=== PATIENT | male | born 1975 | race Caucasian/White ===

== ENCOUNTER 2019-06-16 12:46 | Observation (INO) | payer BC ==
--- NOTE | 2019-06-16 13:25 | RAD REPORT ---
EXAM DESCRIPTION: RAD - Chest Single View - 06/16/2019 1:17 pm CLINICAL HISTORY: ABDOMINAL DISTENTION Chest pain. COMPARISON: No comparisons FINDINGS: Portable technique limits examination quality. The lungs are grossly clear. The heart is normal in size. No displaced fractures. IMPRESSION: No acute intrathoracic process suspected.
[2019-06-16] MEDS ORDERED: NA CHLORIDE 0.9% 1,000 ML ONE (13:26)
[2019-06-16 13:52] LABS: Absolute Lymphocytes (CBC) 1.2 K/uL (0.7-4.9); Basophils % 0.5 % (0-1.3); Hematocrit 52.2 % (39.6-49.0); Lymphocytes % 8.2 % (15.3-44.8); MPV 8.4 fL (7.6-11.3); RBC Red Blood Cell Count 5.66 M/uL (4.33-5.43)
[2019-06-16 13:53] LABS: Protime INR 1.16
[2019-06-16] MEDS ORDERED: METRONIDAZOLE 500mg IVPB 500 MG/100 ML BAG IV ONE (13:53)
[2019-06-16] MEDS ORDERED: CIPROFLOXACIN 400mg IV 400 MG/200 ML BAG IV ONE (13:53)
[2019-06-16 14:09] LABS: ALT/SGPT 26 U/L (12-78); AST/SGOT 33 U/L (15-37); Albumin 4.1 g/dL (3.4-5.0); Alkaline Phosphatase 78 U/L (45-117); BUN Blood Urea Nitrogen 20 mg/dL (7-18); Bicarbonate 24 mmol/L (21-32); Bilirubin Direct 0.2 mg/dL (0-0.2); Bilirubin Total 0.5 mg/dL (0.2-1.0); Glucose Level 138 mg/dL (74-106); Lipase 64 U/L (73-393); Magnesium 2.1 mg/dL (1.8-2.4); NT PRO-BNP 97 pg/mL (<125); Potassium 3.6 mmol/L (3.5-5.1); Protein, Total 8.4 g/dL (6.4-8.2); Sodium Level 134 mmol/L (136-145); Troponin (Emerg Dept Use Only) < 0.02 ng/mL (0.0-0.045)
--- NOTE | 2019-06-16 14:59 | RAD REPORT ---
EXAM DESCRIPTION: CT - Abdomen Pelvis Wo Contrast - 06/16/2019 2:39 pm CLINICAL HISTORY: Abdominal pain. ABD PAIN COMPARISON: No comparisons TECHNIQUE: CT imaging of the abdomen and pelvis was performed without contrast. Solid organ, bowel a nd vascular assessment is limited due to lack of IV and oral contrast. All CT scans are performed using dose optimization technique as appropriate and may include automated exposure control or mA/KV adjustment according to patient size. FINDINGS: The lower lung jonas are clear. The liver demonstrates diffuse fatty infiltration. The spleen, pancreas, adrenal glands and kidneys a re within normal limits for a limited non-contrast examination. No bowel obstruction, free air, free fluid or abscess. Moderate thickening of the majority of the col on is seen, greatest in the transverse colon compatible with colitis. No pneumatosis coli is seen. Th e appendix is normal. The osseous structures are within normal limits.Small fat containing umbilical hernia. Small fat cont aining right inguinal hernia. IMPRESSION: Moderate colitis is present, most severe involving the transverse colon. A limited non-contrast examination was performed as detailed.
[2019-06-16] MEDS ORDERED: CEFTRIAXONE/SWI 2gm 2 GM/20 ML SYR IVP ONE (15:00)
--- NOTE | 2019-06-16 15:32 | EDPHYS ---
Physician Documentation [facility] Name: Nuris Everett Age: 44 yrs Sex: Male : 1975 Arrival Date: 06/16/2019 Time: 12:50 Bed 15 Private MD: ED Physician Aries Mcgraw HPI: 06/16 13:43 This 44 yrs old Male presents to ER via Ambulatory with complaints of Fever, [place] Abdominal Pain. 13:43 The patient reports fever, that was measured at 100 degrees Fahrenheit. Onset: The [place] symptoms/episode began/occurred 2 day(s) ago. Modifying factors: there are no obvious modifying factors. Associated signs and symptoms: Pertinent positives: abdominal pain. Severity of symptoms: At their worst the symptoms were mild in the emergency department the symptoms are unchanged. The patient has not experienced similar symptoms in the past. Historical: - Allergies: 12:59 PENICILLINS; ss - Home Meds: 12:59 None [Active]; ss - PMHx: 12:59 None; ss - PSHx: 12:59 None; ss - Immunization history:: Adult Immunizations unknown. - Social history:: Smoking status: Patient uses tobacco products, smokes one pack cigarettes per day. - Ebola Screening: : Patient denies exposure to infectious person Patient denies travel to an Ebola-affected area in the 21 days before illness onset. - Family history:: not pertinent. ROS: 13:43 Constitutional: Negative for fever, chills, and weight loss, Eyes: Negative for injury, [place] pain, redness, and discharge, ENT: Negative for injury, pain, and discharge, Neck: Negative for injury, pain, and swelling, Cardiovascular: Negative for chest pain, palpitations, and edema, Respiratory: Negative for shortness of breath, cough, wheezing, and pleuritic chest pain, Back: Negative for injury and pain, : Negative for injury, bleeding, discharge, and swelling, MS/Extremity: Negative for injury and deformity, Skin: Negative for injury, rash, and discoloration, Neuro: Negative for headache, weakness, numbness, tingling, and seizure, Psych: Negative for depression, anxiety, suicide ideation, homicidal ideation, and hallucinations, Allergy/Immunology: Negative for hives, rash, and allergies, Endocrine: Negative for neck swelling, polydipsia, polyuria, polyphagia, and marked weight changes, Hematologic/Lymphatic: Negative for swollen nodes, abnormal bleeding, and unusual bruising. 13:43 Abdomen/GI: Positive for abdominal pain, nausea and vomiting, diarrhea, of the right lower quadrant and left lower quadrant. Exam: 13:43 Constitutional: This is a well developed, well nourished patient who is awake, alert, [place] and in no acute distress. Head/Face: Normocephalic, atraumatic. Eyes: Pupils equal round and reactive to light, extra-ocular motions intact. Lids and lashes normal. Conjunctiva and sclera are non-icteric and not injected. Cornea within normal limits. Periorbital areas with no swelling, redness, or edema. ENT: Nares patent. No nasal discharge, no septal abnormalities noted. Tympanic membranes are normal and external auditory canals are clear. Oropharynx with no redness, swelling, or masses, exudates, or evidence of obstruction, uvula midline. Mucous membranes moist. Neck: Trachea midline, no thyromegaly or masses palpated, and no cervical lymphadenopathy. Supple, full range of motion without nuchal rigidity, or vertebral point tenderness. No Meningismus. Chest/axilla: Normal chest wall appearance and motion. Nontender with no deformity. No lesions are appreciated. Cardiovascular: Regular rate and rhythm with a normal S1 and S2. No gallops, murmurs, or rubs. Normal PMI, no JVD. No pulse deficits. Respiratory: Lungs have equal breath sounds bilaterally, clear to auscultation and percussion. No rales, rhonchi or wheezes noted. No increased work of breathing, no retractions or nasal flaring. Back: No spinal tenderness. No costovertebral tenderness. Full range of motion. Male : Normal genitalia with no discharge or lesions. Skin: Warm, dry with normal turgor. Normal color with no rashes, no lesions, and no evidence of cellulitis. MS/ Extremity: Pulses equal, no cyanosis. Neurovascular intact. Full, normal range of motion. Neuro: Awake and alert, GCS 15, oriented to person, place, time, and situation. Cranial nerves II-XII grossly intact. Motor strength 5/5 in all extremities. Sensory grossly intact. Cerebellar exam normal. Normal gait. Psych: Awake, alert, with orientation to person, place and time. Behavior, mood, and affect are within normal limits. 13:43 Abdomen/GI: Inspection: distension, Bowel sounds: normal, Palpation: mild abdominal tenderness, moderate abdominal tenderness, in the right lower quadrant and left lower quadrant, Liver: no appreciated palpable abnormalities, Hernia: not appreciated. Vital Signs: 12:56 BP 140 / 85; Pulse 111; Resp 18; Temp 97.2(TE); Pulse Ox 97% on R/A; Weight 140.61 kg; ss Height 6 ft. 4 in. (193.04 cm); Pain 4/10; 13:56 BP 118 / 89; Pulse 102; Resp 18; Temp 99.1(O); Pulse Ox 95% on R/A; mh5 15:43 BP 125 / 87; Pulse 100; Resp 16; Pulse Ox 93% ; bp 16:13 BP 133 / 94; Pulse 93; Resp 17; Temp 100.7(O); Pulse Ox 95% on R/A; mh5 16:54 BP 107 / 70; Pulse 96; Resp 16; Pulse Ox 97% ; bp 12:56 Body Mass Index 37.73 (140.61 kg, 193.04 cm) ss MDM: 12:51 Patient medically screened. [facility] 13:47 Data reviewed: vital signs, nurses notes, lab test result(s), EKG, radiologic studies, [facility] CT scan, plain films. 06/16 12:57 Order name: Basic Metabolic Panel; Complete Time: 14:24 [facility] 06/16 12:57 Order name: CBC with Diff; Complete Time: 14:24 [facility] 06/16 12:57 Order name: LFT's; Complete Time: 14:24 [facility] 06/16 12:57 Order name: Magnesium; Complete Time: 14:24 [facility] 06/16 12:57 Order name: NT PRO-BNP; Complete Time: 14:24 [facility] 06/16 12:57 Order name: PT-INR; Complete Time: 14:24 [facility] 06/16 12:57 Order name: Troponin (emerg Dept Use Only); Complete Time: 14:24 [facility] 06/16 12:57 Order name: XRAY Chest (1 view); Complete Time: 14:24 [facility] 06/16 12:57 Order name: Lipase; Complete Time: 14:24 [facility] 06/16 12:57 Order name: Urine Culture [facility] 06/16 15:25 Order name: Stool Culture bd 06/16 15:25 Order name: CDIFF bd 06/16 15:25 Order name: Fecal Leukocyte Stain bd 06/16 12:57 Order name: EKG; Complete Time: 12:58 [facility] 06/16 12:57 Order name: Cardiac monitoring; Complete Time: 13:48 [facility] 06/16 12:57 Order name: EKG - Nurse/Tech; Complete Time: 13:09 [facility] 06/16 12:57 Order name: IV Saline Lock; Complete Time: 13:49 [facility] 06/16 12:57 Order name: Labs collected and sent; Complete Time: 13:49 [facility] 06/16 12:57 Order name: O2 Per Protocol; Complete Time: 13:49 [facility] 06/16 12:57 Order name: O2 Sat Monitoring; Complete Time: 13:48 [facility] 06/16 14:28 Order name: CT Abd/Pelvis - Without Contrast; Complete Time: 15:22 [place] Administered Medications: 13:30 Drug: NS 0.9% 1000 ml Route: IV; Rate: 1 bolus; Site: left antecubital; bp 18:17 Follow up: IV Status: Completed infusion bp 13:50 Drug: Flagyl 500 mg Volume: 100 ml; Route: IVPB; Rate: 200 ml/hr; Infused Over: 30 bp mins; Site: left antecubital; 18:16 Follow up: IV Status: Completed infusion; IV Intake: 100ml bp 14:30 Drug: Cipro 400 mg Volume: 200 ml; Route: IVPB; Infused Over: 60 mins; Site: left bp antecubital; 18:17 Follow up: IV Status: Completed infusion bp 14:30 Drug: Rocephin - (cefTRIAXone) 2 grams Route: IVPB; Infused Over: 30 mins; Site: left bp antecubital; 18:16 Follow up: IV Status: Completed infusion; IV Intake: 50ml bp 15:26 Drug: NS 0.9% 1000 ml Route: IV; Rate: 1 bolus; Site: left antecubital; bp 18:15 Follow up: IV Status: Completed infusion; IV Intake: 1000ml bp Disposition: 06/16/19 15:31 Hospitalization ordered by Greg Schaffer for Inpatient Admission. Preliminary diagnosis are Abdominal tenderness, Left sided colitis - pancolitis, Elevated white blood cell count, Fever, unspecified, Unspecified kidney failure. - Bed requested for Telemetry/MedSurg (Inpatient). - Status is Inpatient Admission. bp - Condition is Stable. - Problem is new. - Symptoms have improved. UTI on Admission? No Signatures: Dispatcher [employer] [facility] Maria ElenaZakia hurley Aries Moore MD MD cha Smirch, Shelby, DAVI RN Greg Tapia, RN RN bp Corrections: (The following items were deleted from the chart) 13:09 12:58 Urine Test ordered. [facility] 14:31 13:43 Abdomen Pelvis W Con+CT.RAD.BRZ ordered. [facility] EDAK 15:32 15:31 Hospitalization Ordered by Greg Schaffer for Inpatient Admission. Preliminary [facility] diagnosis is Abdominal tenderness; Left sided colitis - pancolitis; Elevated white blood cell count; Fever, unspecified. Bed requested for Telemetry/MedSurg (Inpatient). Status is Inpatient Admission. Condition is Stable. Problem is new. Symptoms have improved. UTI on Admission? No. [facility] 18:03 15:32 06/16/2019 15:31 Hospitalization Ordered by Greg Schaffer for Inpatient bd Admission. Preliminary diagnosis is Abdominal tenderness; Left sided colitis - pancolitis; Elevated white blood cell count; Fever, unspecified; Unspecified kidney failure. Bed requested for Telemetry/MedSurg (Inpatient). Status is Inpatient Admission. Condition is Stable. Problem is new. Symptoms have improved. UTI on Admission? No. [place] 18:21 18:03 06/16/2019 15:31 Hospitalization Ordered by Greg Schaffer for Inpatient bp Admission. Preliminary diagnosis is Abdominal tenderness; Left sided colitis - pancolitis; Elevated white blood cell count; Fever, unspecified; Unspecified kidney failure. Bed requested for Telemetry/MedSurg (Inpatient). Status is Inpatient Admission. Condition is Stable. Problem is new. Symptoms have improved. UTI on Admission? No. bd
--- NOTE | 2019-06-16 15:32 | ER ---
Nurse's Notes [facility] Name: Nuris Everett Age: 44 yrs Sex: Male : 1975 Arrival Date: 06/16/2019 Time: 12:50 Bed 15 Private MD: Diagnosis: Abdominal tenderness;Left sided colitis-pancolitis;Elevated white blood cell count;Fever, unspecified;Unspecified kidney failure Presentation: 06/16 12:57 Presenting complaint: Patient states: cough, headache, lightheadedness, diarrhea x 2 ss days. Seen by PCP yesterday and given Tamiflu. Pt is concerned because he is still having episodes of diarrhea every 30 minutes and was directed by PCP to come back lab work obtained as well as chest XRAY. Transition of care: patient was not received from another setting of care. Onset of symptoms was June 14, 2019. Risk Assessment: Do you want to hurt yourself or someone else? Patient reports no desire to harm self or others. Initial Sepsis Screen: Does the patient meet any 2 criteria? HR > 90 bpm. Does the patient have a suspected source of infection? No. Patient's initial sepsis screen is negative. Care prior to arrival: None. 12:57 Method Of Arrival: Ambulatory ss 12:57 Acuity: MANFRED 3 ss Triage Assessment: 13:00 General: Appears in no apparent distress. uncomfortable, obese, Behavior is bp cooperative, appropriate for age, anxious. Pain: Complains of pain in left lower quadrant and right lower quadrant. EENT: No deficits noted. Neuro: No deficits noted. Cardiovascular: No deficits noted. Respiratory: No deficits noted. GI: Reports lower abdominal pain. : No signs and/or symptoms were reported regarding the genitourinary system. Derm: No deficits noted. Musculoskeletal: No deficits noted. Historical: - Allergies: 12:59 PENICILLINS; ss - Home Meds: 12:59 None [Active]; ss - PMHx: 12:59 None; ss - PSHx: 12:59 None; ss - Immunization history:: Adult Immunizations unknown. - Social history:: Smoking status: Patient uses tobacco products, smokes one pack cigarettes per day. - Ebola Screening: : Patient denies exposure to infectious person Patient denies travel to an Ebola-affected area in the 21 days before illness onset. - Family history:: not pertinent. Screenin:51 Abuse screen: Denies threats or abuse. Denies injuries from another. Nutritional bp screening: No deficits noted. Tuberculosis screening: No symptoms or risk factors identified. Fall Risk None identified. Assessment: 13:00 General: SEE TRIAGE NOTE. bp 14:30 Reassessment: PT RETURNED FROM CT. bp 14:30 GI: Bowel sounds present X 4 quads. Abd is soft X 4 quads. bp 15:44 Reassessment: ADMIT IN PROCESS. bp 16:53 Reassessment: ADMIT MD AT B/S. bp 16:54 GI: Abdomen is non-distended, Reports diarrhea. bp 18:11 Reassessment: ADMIT COMPLETE. PT MIRZA WITH PCT. bp Vital Signs: 12:56 BP 140 / 85; Pulse 111; Resp 18; Temp 97.2(TE); Pulse Ox 97% on R/A; Weight 140.61 kg; ss Height 6 ft. 4 in. (193.04 cm); Pain 4/10; 13:56 BP 118 / 89; Pulse 102; Resp 18; Temp 99.1(O); Pulse Ox 95% on R/A; mh5 15:43 BP 125 / 87; Pulse 100; Resp 16; Pulse Ox 93% ; bp 16:13 BP 133 / 94; Pulse 93; Resp 17; Temp 100.7(O); Pulse Ox 95% on R/A; mh5 16:54 BP 107 / 70; Pulse 96; Resp 16; Pulse Ox 97% ; bp 12:56 Body Mass Index 37.73 (140.61 kg, 193.04 cm) ED Course: 12:50 Patient arrived in ED. mr 12:51 Aries Mcgraw MD is Attending Physician. [facility] 12:52 Greg Tapia, DAVI is Primary Nurse. bp 12:56 Arm band placed on right wrist. ss 12:59 Triage completed. ss 13:19 XRAY Chest (1 view) In Process Unspecified. EDMS 13:30 Inserted saline lock: 20 gauge in left antecubital area, using aseptic technique. Blood bp collected. 13:51 Patient has correct armband on for positive identification. Bed in low position. Call bp light in reach. Side rails up X2. 14:40 CT Abd/Pelvis - Without Contrast In Process Unspecified. EDMS 15:29 Greg Schaffer is Hospitalizing Provider. [place] 18:12 No provider procedures requiring assistance completed. Patient admitted, IV remains in bp place. Administered Medications: 13:30 Drug: NS 0.9% 1000 ml Route: IV; Rate: 1 bolus; Site: left antecubital; bp 18:17 Follow up: IV Status: Completed infusion bp 13:50 Drug: Flagyl 500 mg Volume: 100 ml; Route: IVPB; Rate: 200 ml/hr; Infused Over: 30 bp mins; Site: left antecubital; 18:16 Follow up: IV Status: Completed infusion; IV Intake: 100ml bp 14:30 Drug: Cipro 400 mg Volume: 200 ml; Route: IVPB; Infused Over: 60 mins; Site: left bp antecubital; 18:17 Follow up: IV Status: Completed infusion bp 14:30 Drug: Rocephin - (cefTRIAXone) 2 grams Route: IVPB; Infused Over: 30 mins; Site: left bp antecubital; 18:16 Follow up: IV Status: Completed infusion; IV Intake: 50ml bp 15:26 Drug: NS 0.9% 1000 ml Route: IV; Rate: 1 bolus; Site: left antecubital; bp 18:15 Follow up: IV Status: Completed infusion; IV Intake: 1000ml bp Intake: 18:15 IV: 1000ml; Total: 1000ml. bp 18:16 IV: 50ml; Total: 1050ml. bp 18:16 IV: 100ml; Total: 1150ml. bp Outcome: 15:31 Decision to Hospitalize by Provider. [place] 18:12 Admitted to Med/surg accompanied by tech, via wheelchair, room 217, with chart, Report bp called to VIRA TOMLINSON 18:12 Condition: stable bp 18:12 Instructed on the need for admit. 18:21 Patient left the ED. bp Signatures: Dispatcher [employer] EDAries Mathew MD MD cha Rivera, Antonietta mr Allegra Tejada, RN RN Liss Miranda [facility] Greg Tapia, DAVI RN bp
--- NOTE | 2019-06-16 17:11 | EKG ---
Test Date: 2019-06-16 Test Time: 13:04:30 Director Service: EVAN/S MEASUREMENT RESULTS: Intervals: Rate: 97 CA: 124 QRSD: 88 QT: 352 QTc: 447 [place]: P: 41 CA: 124 QRS: -24 T: -13 INTERPRETIVE STATEMENTS: Normal sinus rhythm Left atrial abnormality Non specific T abnormality Abnormal ECG No previous ECG available for comparison Electronically Signed On 06-16-19 17:10:26 CDT by Joaquín Burdick
--- NOTE | 2019-06-16 17:40 | P.HP ---
Certification for Inpatient Patient admitted to: Inpatient With expected LOS: >2 Midnights Practitioner: I am a practitioner with admitting privileges, knowledge of patient current condition, hospital course, and medical plan of care. Services: Services provided to patient in accordance with Admission requirements found in Title 42 Section 412.3 of the Code of Federal Regulations Patient History Date of Service: 06/16/19 Reason for admission: Diarrhea History of Present Illness: 44-year-old gentleman with known past medical history presented to the emergency department with a complaint of diarrhea of 2 days duration, associated nausea and fever. He reports several episodes of diarrhea, about 12 today, along with abdominal pain, maximum intensity 8/10. Diarrhea described as watery and profuse, no mucous or blood seen. He denies vomiting. In the ED, patient noted [place] afebrile, has leukocytosis. His creatinine is 1.64. No other lab values to compare. CT abdomen and pelvis demonstrated colitis most severe in the transverse colon. Patient is admitted for further management of infectious colitis. Home medications list reviewed: Yes (None) - Past Medical/Surgical History -: None -: None - Family History Family History: Reviewed- Non-Contributory - Social History Smoking Status: Current every day smoker Alcohol use: Yes CD- Drugs: No Place of Residence: Home Review of Systems Other: General: No fever, no malaise, no unintentional weight loss. Eyes: No eye discharge, Respiratory: No cough, no shortness of breath. CVS: No chest pain, no palpitation, no lightheadedness. GI: No abdominal pain, no constipation. Genitourinary: No dysuria, no urinary frequency, no incontinence, no hematuria. Musculoskeletal: No joint pains, or joint swelling, no gait instability. Neurology: No headache, no asymmetric, weakness, no problem with swallowing. Except as documented, all other systems reviewed and negative. Physical Examination - Physical Exam General: Alert, In no apparent distress, Oriented x3 HEENT: Atraumatic, Normocephalic, PERRLA, Mucous membr. moist/pink Neck: Supple, JVD not distended, No Thyromegaly Respiratory: Clear to auscultation bilaterally, Normal air movement Cardiovascular: No edema, Regular rate/rhythm, Normal S1 S2, No murmurs Capillary refill: <2 Seconds Gastrointestinal: Normal bowel sounds, Soft and benign, Tenderness (Mild diffuse tenderness.) Musculoskeletal: No clubbing, No swelling Integumentary: No rashes, No breakdown Neurological: Normal gait, Normal strength at 5/5 x4 extr, Cranial nerves 3-12 intact, Normal affect Lymphatics: No axilla or inguinal lymphadenopathy - Studies Laboratory Data (last 24 hrs) 06/16/19 13:30: PT 13.6 H, INR 1.16 06/16/19 13:30: WBC 15.1 H, Hgb 18.4 H, Hct 52.2 H, Plt Count 266 06/16/19 13:30: Sodium 134 L, Potassium 3.6, BUN 20 H, Creatinine 1.64 H, Glucose 138 H, Magnesium 2.1, Total Bilirubin 0.5, AST 33, ALT 26, Alkaline Phosphatase 78, Lipase 64 L Imagings Data: CT abdomen/pelvis: Moderate colitis is present, most severe involving the transverse colon. Assessment and Plan - Problems (Diagnosis) (1) Infectious colitis Current Visit: Yes Status: Acute (2) Leukocytosis Current Visit: Yes Status: Acute (3) Acute renal failure Current Visit: Yes Status: Acute (4) Tobacco use Current Visit: Yes Status: Acute - Plan Admit to [facility] IV hydration with normal saline IV Flagyl and ciprofloxacin Stool studies-WBC, C.diff Monitor renal function for improvement. Monitor CBC. Nicotine patch. - Advance Directives Does patient have a Living Will: No Does patient have a Durable POA for Healthcare: No
[2019-06-16] MEDS ORDERED: ONDANSETRON 4 MG/2 ML VIAL IV PRN (18:37)
[2019-06-16] MEDS ORDERED: ACETAMINOPHEN 500 MG TAB PO PRN (18:37)
[2019-06-16] MEDS ORDERED: ZOLPIDEM TARTRATE 5 MG TABLET PO PRN (18:37)
[2019-06-16] MEDS ORDERED: MORPHINE 2 MG/ML SYR IV PRN (18:37)
[2019-06-16] MEDS: NA CHLORIDE 0.9% 1,000 ML IV SCH (20:36)
[2019-06-16] MEDS: ENOXAPARIN 40 MG/0.4 ML SQ SCH (20:37)
[2019-06-16] MEDS: CIPROFLOXACIN 400mg IV 400 MG/200 ML BAG IV SCH (20:37)
[2019-06-16] MEDS ORDERED: INFLUENZA VACCINE (for 3y+) 0.5 ML DOSE IMVAC ONE (21:00)
[2019-06-16 21:28] VITALS: O2SAT 96
[2019-06-17] MEDS: METRONIDAZOLE 500mg IVPB 500 MG/100 ML BAG IV SCH ×3 (00:52→17:22)
[2019-06-17] MEDS: NA CHLORIDE 0.9% 1,000 ML IV SCH ×3 (04:37→14:37)
[2019-06-17] MEDS: LOPERAMIDE HCL 2 MG CAPSULE PO PRN ×2 (06:00→21:18)
[2019-06-17 06:03] LABS: Magnesium 2.2 mg/dL (1.8-2.4); Phosphorus 2.9 mg/dL (2.5-4.9); Potassium 3.7 mmol/L (3.5-5.1)
[2019-06-17 07:35] LABS: Absolute Lymphocytes (CBC) 2.2 K/uL (0.7-4.9); Basophils % 0.4 % (0-1.3); Hematocrit 49.7 % (39.6-49.0); Lymphocytes % 14.8 % (15.3-44.8); MPV 8.8 fL (7.6-11.3); RBC Red Blood Cell Count 5.32 M/uL (4.33-5.43)
[2019-06-17] MEDS: ENOXAPARIN 40 MG/0.4 ML SQ SCH ×2 (09:00→09:15)
[2019-06-17] MEDS ORDERED: POTASSIUM CL SA 10 MEQ TAB PO ONE (09:00)
[2019-06-17] MEDS: CIPROFLOXACIN 400mg IV 400 MG/200 ML BAG IV SCH ×2 (09:14→21:18)
[2019-06-17 10:51] LABS: Platelet Estimate ADEQ; Toxic Granulation 1+
[2019-06-17 10:52] LABS: Urine White Blood Cell Casts DIFF
[2019-06-17 10:55] LABS: Anisocytosis 1+; Blood Morphology Comment NOTED (NOT SEEN)
[2019-06-17 13:10] LABS: C.diff Antigen/Toxin Ag neg : Tox neg (NEG : NEG)
--- NOTE | 2019-06-17 14:47 | P.PN ---
Subjective Date of Service: 06/17/19 Chief Complaint: Diarrhea, abdominal pain Patient reports multiple episodes of diarrhea, about 10 overnight. He also reports intermittent abdominal pain. Stool for C. diff is negative. Leukocytosis is only trending down slowly. Physical Examination - Vital Signs Temperature: 98 F Blood Pressure: 118/66 Pulse: 86 Respirations: 18 Pulse Ox (%): 94 - Physical Exam General: Alert, In no apparent distress, Oriented x3 HEENT: Mucous membr. moist/pink Neck: Supple, JVD not distended Respiratory: Clear to auscultation bilaterally, Normal air movement Cardiovascular: No edema, Regular rate/rhythm, Normal S1 S2, No murmurs Capillary refill: <2 Seconds Gastrointestinal: Normal bowel sounds, Soft and benign, Non-distended, No tenderness Musculoskeletal: No clubbing, No swelling Integumentary: No rashes Neurological: Normal strength at 5/5 x4 extr, Cranial nerves 3-12 intact Assessment And Plan - Current Problems (Diagnosis) (1) Infectious colitis Current Visit: Yes Status: Acute (2) Leukocytosis Current Visit: Yes Status: Acute (3) Acute renal failure Current Visit: Yes Status: Acute (4) Tobacco use Current Visit: Yes Status: Acute - Plan Continue IV hydration with normal saline Continue IV Flagyl and ciprofloxacin Check stool WBC. Monitor renal function panel. Monitor CBC. Nicotine patch.
[2019-06-17 19:56] VITALS: BMI 36.8
[2019-06-17] MEDS: ENSURE CLEAR 200 ML CAN PO SCH (21:27)
[2019-06-18] MEDS: METRONIDAZOLE 500mg IVPB 500 MG/100 ML BAG IV SCH ×2 (01:00→09:34)
[2019-06-18] MEDS: NA CHLORIDE 0.9% 1,000 ML IV SCH ×2 (02:24→10:37)
[2019-06-18 05:18] LABS: Absolute Lymphocytes (CBC) 2.2 K/uL (0.7-4.9); Hematocrit 47.5 % (39.6-49.0); Lymphocytes % 24.3 % (15.3-44.8); MPV 7.7 fL (7.6-11.3); RBC Red Blood Cell Count 5.07 M/uL (4.33-5.43)
[2019-06-18 05:32] LABS: Potassium 3.8 mmol/L (3.5-5.1)
--- NOTE | 2019-06-18 08:49 | P.DS ---
Admission Date: 06/16/19 Discharge Date: 06/18/19 Disposition: ROUTINE DISCHARGE Discharge Condition: GOOD Reason for Admission: Diarrhea, abdominal pain - Problems (1) Infectious colitis Current Visit: Yes Status: Acute (2) Leukocytosis Current Visit: Yes Status: Acute (3) Acute renal failure Current Visit: Yes Status: Acute (4) Tobacco use Current Visit: Yes Status: Acute Brief History of Present Illness: 44-year-old gentleman with no known past medical history presented to the emergency department with a complaint of diarrhea of 2 days duration, associated nausea and fever. He reports several episodes of diarrhea, about 12 per day, along with abdominal pain, maximum intensity 8/10. Diarrhea described as watery and profuse, no mucous or blood seen. He denied vomiting. In the ED, patient noted to be afebrile, had leukocytosis. His creatinine was 1.64. No other lab values to compare. CT abdomen and pelvis demonstrated colitis most severe in the transverse colon. Patient was admitted for further management of infectious colitis. Hospital Course: Patient admitted to the medical floor. Given IV normal saline and placed on IV ciprofloxacin and Flagyl. He was also placed on clear liquid diet. Stool for C. diff was negative. Her symptoms improved with the antibiotics. The diarrhea frequency improve significantly. He was afebrile during the hospital stay and her abdominal pain also resolved. His colitis is likely infectious. He has tolerated diet advancement. Patient is deemed clinically stable for discharge. His prescribed oral Cipro and Flagyl to complete 7 days of treatment. Vital Signs/Physical Exam: Temp Pulse Resp BP Pulse Ox 97.8 F 72 19 115/75 100 06/18/19 04:27 06/18/19 04:27 06/18/19 04:27 06/18/19 04:27 06/18/19 04:27 General: Alert, In no apparent distress, Oriented x3 HEENT: Mucous membr. moist/pink Neck: Supple, JVD not distended Respiratory: Clear to auscultation bilaterally, Normal air movement Cardiovascular: No edema, Normal pulses, Regular rate/rhythm, Normal S1 S2, No murmurs Capillary refill: <2 Seconds Gastrointestinal: Normal bowel sounds, Soft and benign, Non-distended, No tenderness Musculoskeletal: No clubbing, No swelling Integumentary: No rashes Neurological: Normal gait, Normal strength at 5/5 x4 extr Laboratory Data at Discharge: WBC 9.0 K/uL (4.3-10.9) D 06/18/19 05:10 Hgb 16.2 g/dL (13.6-17.9) 06/18/19 05:10 Hct 47.5 % (39.6-49.0) 06/18/19 05:10 Plt Count 224 K/uL (152-406) 06/18/19 05:10 PT 13.6 SECONDS (9.5-12.5) H 06/16/19 13:30 INR 1.16 06/16/19 13:30 Sodium 140 mmol/L (136-145) 06/18/19 05:10 Potassium 3.8 mmol/L (3.5-5.1) 06/18/19 05:10 BUN 13 mg/dL (7-18) 06/18/19 05:10 Creatinine 1.35 mg/dL (0.55-1.3) H 06/18/19 05:10 Glucose 91 mg/dL (74-106) 06/18/19 05:10 Phosphorus 2.9 mg/dL (2.5-4.9) 06/17/19 05:23 Magnesium 2.2 mg/dL (1.8-2.4) 06/17/19 05:23 Total Bilirubin 0.5 mg/dL (0.2-1.0) 06/16/19 13:30 AST 33 U/L (15-37) 06/16/19 13:30 ALT 26 U/L (12-78) 06/16/19 13:30 Alkaline Phosphatase 78 U/L (45-117) 06/16/19 13:30 Lipase 64 U/L (73-393) L 06/16/19 13:30 Home Medications: Ciprofloxacin HCl [Cipro 500 MG Tablet] 500 mg PO BID 5 Days #10 tab 06/18/19 metroNIDAZOLE [Flagyl] 500 mg PO Q8H #15 tablet 06/18/19 New Medications: Ciprofloxacin HCl [Cipro 500 MG Tablet] 500 mg PO BID 5 Days #10 tab metroNIDAZOLE [Flagyl] 500 mg PO Q8H #15 tablet Diet: AHA Activity: Ad federico Time spent managing pt's care (in minutes): 27
[2019-06-18] MEDS ORDERED: POTASSIUM CL SA 10 MEQ TAB PO ONE (09:00)
[2019-06-18] MEDS: ENSURE CLEAR 200 ML CAN PO SCH (09:00)
[2019-06-18] MEDS: ENOXAPARIN 40 MG/0.4 ML SQ SCH (09:00)
[2019-06-18] MEDS: CIPROFLOXACIN 400mg IV 400 MG/200 ML BAG IV SCH (09:34)
[2019-06-18 15:11] VITALS: BP 142/88; TEMP 97.8
== END 2019-06-18 12:17 | disposition home or self-care (01) ==
LOC: ER 12:46 → 2ND 17:45 → INTOOBSV 17:45
PROVIDERS: ADMIT Internal Medicine; ATTEND Internal Medicine
DX: A09 Infectious gastroenteritis and colitis, unspecified (principal); D72.829 Elevated white blood cell count, unspecified; N17.9 Acute kidney failure, unspecified; F17.210 Nicotine dependence, cigarettes, uncomplicated
CPT/HCPCS: 96365; 96367; 96368; 93005; 87088; 87045; 85025 ×3; 80048 ×3; 36415 ×2; 83735 ×2; 89055; 84100; 85610; 80076; 87046; 87324; 84484; 83690; 83880; 87449; 74176; 71045; 94760 ×3; 99285; 96366; J1650 ×2; J0696; J7030 ×4; J0744 ×5; G0378 ×4; 87086

== ENCOUNTER 2019-07-04 12:31 | Emergency (ER) | payer BC ==
[2019-07-04] MEDS ORDERED: LIDOCAINE 1% MPF 5 ML VIAL ONE (14:13)
[2019-07-04 14:23] LABS: Absolute Lymphocytes (CBC) 2.3 K/uL (0.7-4.9); Basophils % 1.1 % (0-1.3); Hematocrit 46.9 % (39.6-49.0); Lymphocytes % 31.3 % (15.3-44.8); MPV 8.1 fL (7.6-11.3); RBC Red Blood Cell Count 5.04 M/uL (4.33-5.43)
[2019-07-04 14:26] LABS: Urine Blood TRACE (NEG); Urine Glucose NEGATIVE (NEG); Urine Protein NEGATIVE (NEG)
[2019-07-04 14:32] LABS: Potassium 3.6 mmol/L (3.5-5.1)
--- NOTE | 2019-07-04 15:13 | RAD REPORT ---
EXAM DESCRIPTION: CT - Abdomen Pelvis W Contrast - 07/04/2019 2:55 pm CLINICAL HISTORY: Abdominal pain COMPARISON: none. TECHNIQUE: Computed axial tomography of the abdomen pelvis was obtained. 100 cc Isovue-300 was admin istered intravenously. Oral contrast was not requested which limits evaluation of bowel. All CT scans are performed using dose optimization technique as appropriate and may include automated exposure control or mA/KV adjustment according to patient size. FINDINGS: Fatty liver Borderline splenomegaly Pancreas, adrenal and kidneys appear unremarkable. There is no evidence of diverticulitis. Colonic wall thickness is normal. Normal appendix Small umbilical hernia small right inguinal hernia contains fat IMPRESSION: No acute abnormality is displayed.
--- NOTE | 2019-07-04 15:47 | ER ---
Nurse's Notes [facility] Name: Nuris Everett Age: 44 yrs Sex: Male : 1975 Arrival Date: 07/04/2019 Time: 12:33 Bed 24 Private MD: Suraj Ferguson Diagnosis: Lower abdominal pain, unspecified;Cutaneous abscess of back [any part, except buttock] Presentation: 07/04 12:46 Presenting complaint: Patient states: was seen here a couple of weeks ago for colon sv infection and given abx. Pt now has abd pain and diarrhea that started 3 days ago. Transition of care: patient was not received from another setting of care. Onset of symptoms was July 01, 2019. Risk Assessment: Do you want to hurt yourself or someone else? Patient reports no desire to harm self or others. Care prior to arrival: None. 12:46 Method Of Arrival: Ambulatory sv 12:46 Acuity: MANFRED 3 sv 14:21 Initial Sepsis Screen: Does the patient meet any 2 criteria? No. Patient's initial rv sepsis screen is negative. Does the patient have a suspected source of infection? No. Patient's initial sepsis screen is negative. Triage Assessment: 12:46 General: Appears in no apparent distress. uncomfortable, well developed, Behavior is sv calm, cooperative, appropriate for age. Pain: Complains of pain in abdomen. Neuro: Level of Consciousness is awake, alert, obeys commands, Gait is steady. Respiratory: Respiratory effort is even, unlabored, Respiratory pattern is regular, symmetrical. GI: Reports diarrhea. Historical: - Allergies: 12:47 PENICILLINS; sv - PMHx: 12:47 None; sv - PSHx: 12:47 None; sv - Immunization history:: Adult Immunizations up to date. - Social history:: Smoking status: Patient uses tobacco products, smokes one pack cigarettes per day. - Ebola Screening: : No symptoms or risks identified at this time. Screenin:21 Abuse screen: Denies threats or abuse. Denies injuries from another. Nutritional rv screening: No deficits noted. Tuberculosis screening: No symptoms or risk factors identified. Fall Risk None identified. Assessment: 14:18 General: Appears in no apparent distress. comfortable, Behavior is calm, cooperative. rv Pain: Complains of pain in abdomen. Neuro: Level of Consciousness is awake, alert, obeys commands, Oriented to person, place, time, situation. Cardiovascular: Patient's skin is warm and dry. Respiratory: Airway is patent. GI: Reports lower abdominal pain, diarrhea. : No signs and/or symptoms were reported regarding the genitourinary system. EENT: No signs and/or symptoms were reported regarding the EENT system. Derm: Abscess located on right mid back. Musculoskeletal: No signs and/or symptoms reported regarding the musculoskeletal system. 14:59 Reassessment: patient started sneezing right after IV contrast was given as per CT scan rv tech. Vital Signs: 12:47 BP 128 / 91; Pulse 84; Resp 18; Temp 97.7; Pulse Ox 96% ; Weight 139.25 kg; Height 6 sv ft. 4 in. (193.04 cm); 14:28 BP 128 / 94; Pulse 80; Resp 17; Pulse Ox 97% on R/A; rv 15:34 BP 123 / 95; Pulse 81; Resp 17; Temp 97.8; Pulse Ox 97% on R/A; rv 12:47 Body Mass Index 37.37 (139.25 kg, 193.04 cm) sv ED Course: 12:33 Patient arrived in ED. ag5 12:34 Nirali Dimas MD is Private Physician. ag5 12:34 Suraj Ferguson DO is Private Physician. ag5 12:47 Triage completed. sv 12:48 Arm band placed on. sv 12:49 Tory [facility]C [facility] kb 12:49 Branden Cardona MD is Attending Physician. kb 13:52 Porfirio Bernard RN is Primary Nurse. rv 14:08 Inserted saline lock: 20 gauge in right antecubital area, using aseptic technique. rv Blood collected. 14:21 Patient has correct armband on for positive identification. Bed in low position. Call rv light in reach. Side rails up X 1. Pulse ox on. NIBP on. 14:54 CT completed. Patient tolerated procedure well. Patient moved back from CT. kw1 14:56 CT Abd/Pelvis - IV Contrast Only In Process Unspecified. EDMS 15:45 Suraj Ferguson DO is Referral Physician. kb 15:50 Assist provider with I \T\ D: of an abscess on back, right mid Set up I\T\D tray. Performed rv by Tory AGUERO Dressing with 4X4s, Patient tolerated well. IV discontinued, intact, bleeding controlled, No redness/swelling at site. Pressure dressing applied. Administered Medications: No medications were administered Outcome: 15:46 Discharge ordered by . lina 15:51 Discharged to home ambulatory. rv 15:51 Condition: good 15:51 Discharge instructions given to patient, Instructed on discharge instructions, follow up and referral plans. medication usage, Demonstrated understanding of instructions, follow-up care, medications, Prescriptions given X 1. 15:51 Patient left the ED. rv Signatures: Dispatcher [employer] EDMS Tory Santiago, MORE BARRETTP-Judy Prather, RN RN Gisela Linton1 Porfirio Bernard RN RN Vern Dexter ag5
--- NOTE | 2019-07-04 15:47 | EDPHYS ---
Physician Documentation [facility] Name: Nuris Everett Age: 44 yrs Sex: Male : 1975 Arrival Date: 07/04/2019 Time: 12:33 Bed 24 Private MD: Suraj Ferguson ED Physician Branden Cardona HPI: 07/04 12:51 This 44 yrs old Male presents to ER via Ambulatory with complaints of kb Abdominal Pain. 12:50 "I was in here a couple weeks ago for a colon infection and came back to get a refill kb of the antibiotics because I think it's coming back.". 12:51 The symptoms do not radiate. The patient has experienced a previous episode, last kb month. The patient has not recently seen a physician. 12:52 Onset: The symptoms/episode began/occurred 3 day(s) ago. Associated signs and symptoms: kb Pertinent positives: diarrhea, Pertinent negatives: nausea and vomiting, fever. The symptoms are described as crampy. Modifying factors: The symptoms are alleviated by nothing, the symptoms are aggravated by nothing. Severity of pain: At its worst the pain was mild in the emergency department the pain is unchanged. 14:24 The patient presents with abdominal pain in the lower abdomen. kb Historical: - Allergies: 12:47 PENICILLINS; sv - PMHx: 12:47 None; sv - PSHx: 12:47 None; sv - Immunization history:: Adult Immunizations up to date. - Social history:: Smoking status: Patient uses tobacco products, smokes one pack cigarettes per day. - Ebola Screening: : No symptoms or risks identified at this time. ROS: 13:58 Constitutional: Negative for fever, chills, and weight loss, Neck: Negative for injury, kb pain, and swelling, Cardiovascular: Negative for chest pain, palpitations, and edema, Respiratory: Negative for shortness of breath, cough, wheezing, and pleuritic chest pain, Back: Negative for injury and pain, : Negative for injury, bleeding, discharge, and swelling, MS/Extremity: Negative for injury and deformity, Neuro: Negative for headache, weakness, numbness, tingling, and seizure. 13:58 Abdomen/GI: Positive for abdominal pain, diarrhea, Negative for nausea and vomiting, constipation, abdominal cramps, abdominal distension, anorexia. 13:58 Skin: Positive for abscess, of the right mid back. kb Exam: 13:57 Constitutional: This is a well developed, well nourished patient who is awake, alert, kb and in no acute distress. Head/Face: Normocephalic, atraumatic. ENT: Nares patent. No nasal discharge, no septal abnormalities noted. Tympanic membranes are normal and external auditory canals are clear. Oropharynx with no redness, swelling, or masses, exudates, or evidence of obstruction, uvula midline. Mucous membranes moist. Neck: Trachea midline, no thyromegaly or masses palpated, and no cervical lymphadenopathy. Supple, full range of motion without nuchal rigidity, or vertebral point tenderness. No Meningismus. Chest/axilla: Normal chest wall appearance and motion. Nontender with no deformity. No lesions are appreciated. Cardiovascular: Regular rate and rhythm with a normal S1 and S2. No gallops, murmurs, or rubs. Normal PMI, no JVD. No pulse deficits. Respiratory: Lungs have equal breath sounds bilaterally, clear to auscultation and percussion. No rales, rhonchi or wheezes noted. No increased work of breathing, no retractions or nasal flaring. Abdomen/GI: Soft, non-tender, with normal bowel sounds. No distension or tympany. No guarding or rebound. No evidence of tenderness throughout. Back: No spinal tenderness. No costovertebral tenderness. Full range of motion. MS/ Extremity: Pulses equal, no cyanosis. Neurovascular intact. Full, normal range of motion. Neuro: Awake and alert, GCS 15, oriented to person, place, time, and situation. Cranial nerves II-XII grossly intact. Motor strength 5/5 in all extremities. Sensory grossly intact. Cerebellar exam normal. Normal gait. 13:58 Skin: abscess, that is moderate sized, of the right mid back, with fluctuance, that is kb mild, that is moderate. Vital Signs: 12:47 BP 128 / 91; Pulse 84; Resp 18; Temp 97.7; Pulse Ox 96% ; Weight 139.25 kg; Height 6 sv ft. 4 in. (193.04 cm); 14:28 BP 128 / 94; Pulse 80; Resp 17; Pulse Ox 97% on R/A; rv 15:34 BP 123 / 95; Pulse 81; Resp 17; Temp 97.8; Pulse Ox 97% on R/A; rv 12:47 Body Mass Index 37.37 (139.25 kg, 193.04 cm) sv MDM: 12:49 Patient medically screened. kb 13:57 Data reviewed: vital signs, nurses notes. Data interpreted: Pulse oximetry: on room air kb is 96 %. Interpretation: normal. 15:45 Counseling: I had a detailed discussion with the patient and/or guardian regarding: the kb historical points, exam findings, and any diagnostic results supporting the discharge/admit diagnosis, lab results, radiology results, the need for outpatient follow up, a family practitioner, to return to the emergency department if symptoms worsen or persist or if there are any questions or concerns that arise at home. 07/04 13:50 Order name: Basic Metabolic Panel; Complete Time: 14:32 kb 07/04 13:50 Order name: CBC with Diff; Complete Time: 14:30 kb 07/04 13:50 Order name: IV Saline Lock; Complete Time: 14:25 kb 07/04 13:50 Order name: Labs collected and sent; Complete Time: 14:25 kb 07/04 14:18 Order name: Urine Dipstick--Ancillary (enter results); Complete Time: 14:28 mt 07/04 14:33 Order name: CT Abd/Pelvis - IV Contrast Only; Complete Time: 15:19 kb Administered Medications: No medications were administered Disposition: 16:06 Co-signature as Attending Physician, Branden Cardona MD. rn Disposition: 07/04/19 15:46 Discharged to Home. Impression: Lower abdominal pain, unspecified, Cutaneous abscess of back [any part, except buttock]. - Condition is Stable. - Discharge Instructions: Skin Abscess, Aoph-nt-Kwni, Abdominal Pain, Adult, Qshi-ws-Wibr. - Prescriptions for Bactrim DS 800- 160 mg Oral Tablet - take 1 tablet by ORAL route every 12 hours for 10 days; 20 tablet. - Medication Reconciliation Form, Thank You Letter, Antibiotic Education, Prescription Opioid Use form. - Follow up: Emergency Department; When: As needed; Reason: Worsening of condition. Follow up: Suraj Ferguson DO; When: 2 - 3 days; Reason: Recheck today's complaints, Continuance of care, Re-evaluation by your physician. Signatures: Dispatcher [employer] EDTory Spencer HAM MARKER-C HAM MARKER-Ckb Judy Meredith RN RN sv Nieto, Roman, MD MD rn Vicente, Ronaldo, RN RN rv Corrections: (The following items were deleted from the chart) 13:58 13:57 Constitutional: This is a well developed, well nourished patient who is awake, kb alert, and in no acute distress. Head/Face: Normocephalic, atraumatic. ENT: Nares patent. No nasal discharge, no septal abnormalities noted. Tympanic membranes are normal and external auditory canals are clear. Oropharynx with no redness, swelling, or masses, exudates, or evidence of obstruction, uvula midline. Mucous membranes moist. Neck: Trachea midline, no thyromegaly or masses palpated, and no cervical lymphadenopathy. Supple, full range of motion without nuchal rigidity, or vertebral point tenderness. No Meningismus. Chest/axilla: Normal chest wall appearance and motion. Nontender with no deformity. No lesions are appreciated. Cardiovascular: Regular rate and rhythm with a normal S1 and S2. No gallops, murmurs, or rubs. Normal PMI, no JVD. No pulse deficits. Respiratory: Lungs have equal breath sounds bilaterally, clear to auscultation and percussion. No rales, rhonchi or wheezes noted. No increased work of breathing, no retractions or nasal flaring. Abdomen/GI: Soft, non-tender, with normal bowel sounds. No distension or tympany. No guarding or rebound. No evidence of tenderness throughout. Back: No spinal tenderness. No costovertebral tenderness. Full range of motion. Skin: Warm, dry with normal turgor. Normal color with no rashes, no lesions, and no evidence of cellulitis. MS/ Extremity: Pulses equal, no cyanosis. Neurovascular intact. Full, normal range of motion. Neuro: Awake and alert, GCS 15, oriented to person, place, time, and situation. Cranial nerves II-XII grossly intact. Motor strength 5/5 in all extremities. Sensory grossly intact. Cerebellar exam normal. Normal gait. kb 13:59 13:58 Constitutional: Negative for fever, chills, and weight loss, Neck: Negative for kb injury, pain, and swelling, Cardiovascular: Negative for chest pain, palpitations, and edema, Respiratory: Negative for shortness of breath, cough, wheezing, and pleuritic chest pain, Back: Negative for injury and pain, : Negative for injury, bleeding, discharge, and swelling, MS/Extremity: Negative for injury and deformity, Skin: Negative for injury, rash, and discoloration, Neuro: Negative for headache, weakness, numbness, tingling, and seizure, kb 15:51 15:46 07/04/2019 15:46 Discharged to Home. Impression: Lower abdominal pain, rv unspecified; Cutaneous abscess of back [any part, except buttock]. Condition is Stable. Forms are Medication Reconciliation Form, Thank You Letter, Antibiotic Education, Prescription Opioid Use. Follow up: Emergency Department; When: As needed; Reason: Worsening of condition. [facility]; When: 2 - 3 days; Reason: Recheck today's complaints, Continuance of care, Re-evaluation by your physician. kb
[2019-07-04 16:01] VITALS: O2SAT 97
[2019-07-04 16:02] VITALS: BP 123/95; TEMP 97.8
== END 2019-07-04 15:51 | disposition home or self-care (01) ==
LOC: ER 12:31
DX: L02.212 Cutaneous abscess of back [any part, except buttock and flank] (principal); R10.30 Lower abdominal pain, unspecified; F17.210 Nicotine dependence, cigarettes, uncomplicated; Z88.0 Allergy status to penicillin
CPT/HCPCS: 85025; 80048; 36415; 81003; 74177; 99284; Q9967

== ENCOUNTER 2020-07-28 11:28 | Emergency (ER) | payer BC, SELFPAY ==
--- OUTSIDE RECORDS SUMMARY | 2020-07-28 11:39 | XMS REPORT | Continuity of Care Document ---
:1975 Author Organization [facility] Address [address] [place] [address] Care Team Providers Name Role Phone Unavailable Unavailable Unavailable Problems Condition Condition Condition Status Onset Resolution Last Treating Co mments Source Name Details Category Date Date Treatment Clinician Date Adult BMI Adult BMI Problem Active [facility] 38[facility]0-38[facility]9 38.0-38.9 [facility] Allergic Allergic Problem Active [facility]initis, [facility]initis, [facility] - unspecifie unspecifie Me moria d d l seasonalit seasonalit Ou tpati y, y, ent unspecifie unspecifie Cl inics d trigger d trigger Tobacco Tobacco Problem Active [facility] use [facility] - disorder disorder Memori a [facility] Allergies, Adverse Reactions, Alerts Allergy Allergy Status Severity Reaction(s) Onset Inactive Treating Comm ents Source Name Type Date Date Clinician PCN Adverse Active Info Not [facility] Reaction Available [facility] Medications Ordered Filled Start Stop Current Ordering Indication Dosage Frequency Signature Comments Components Source Medication Medication Date Date Medication? Clinician (SIG) Name Name Montelukast Montelukast 2018-09 Yes Suraj [address] [facility] Sodium Sodium 1-14 [facility] in the [facility] - 00:00: morning Memoria 00 [facility] ent Clinics Levocetiriz Levocetiriz 2018-09- No Suraj [address] [facility] ine ine 1-14 01-13 [facility] - Dihydrochlo Dihydrochlo 00:00: 00:00 evening Memoria ride ride 00 :00 [facility] Oseltamivir Oseltamivir 2018-09 Yes Suraj [address] [facility] Phosphate Phosphate 0-07 Fegruson [facility] - 00:00: Memoria 00 l Outpati ent Clinics Immunizations Ordered Filled Immunization Date Status Comments [facility] e Immunization Name Name Fluzone Fluzone 2018-12-[address] [facility] - 00:00:00 [facility] PNEUMAVAX 23 PNEUMAVAX 23 2018-12-[address] - 00:00[facility]00 [facility] Procedures This patient has no known procedures. Encounters Start End Encounter Admission Attending Care Care Encounter Source Date/Time Date/Time Type Type Clinicians Facility Department ID 2019-08-26 2019-08-26 [facility] [id number] [facility] 15:17:00 15:17:00 [facility] l Medicine Outpati ent Clinics 2019-07-23 2019-07-23 [facility] [id number] 10:15:00 10:15:00 t [email or web address] [facility] Medicine l Medicine Outpati ent Clinics 2019-06-16 2019-06-16 [facility] [id number] 10:03:00 10:03:00 t [email or web address] [facility] Medicine l Medicine Outpati ent Clinics 2019-06-15 2019-06-15 [facility] [id number] 13:15:00 13:15:00 t [email or web address] [facility] Medicine l Medicine Outpati ent Clinics 2019-06-11 2019-06-11 [facility] [id number] [facility] 14:29:00 14:29:00 [facility] Medicine l Medicine Outpati ent Clinics 2019-04-28 2019-04-28 [facility] [id number] [facility] 16:00:00 16:00:00 [facility] Medicine l Medicine Outpati ent Clinics 2019-03-30 2019-03-30 [facility] [id number] 14:30:00 14:30:00 [facility] Medicine l Medicine Outpati ent Clinics 2018-12-19 2018-12-19 [facility] [id number] 15:38:00 15:38:00 t [email or web address] [facility] ent Clinics 2018-12-17 2018-12-17 Outpatient Merna Baumant [id number] [facility] 15:15:00 15:15:00 t [email or web address] [facility] 2018-12-12 2018-12-12 Outpatient Merna Baumant [id number] 09:15:00 09:15:00 [email or web address] [facility] ent Clinics Results This patient has no known results.
[2020-07-28] MEDS ORDERED: LIDOCAINE 1% MPF 5 ML VIAL ONE (12:06)
--- NOTE | 2020-07-28 12:11 | ER ---
Nurse's Notes [facility] Name: Nuris Everett Age: 45 yrs Sex: Male : 1975 Arrival Date: 07/28/2020 Time: 11:30 Bed 17 Private MD: Jaime Montes De Oca R Diagnosis: Cutaneous abscess of groin-spontaneously draining Presentation: 07/28 11:38 Chief complaint: Patient states: Abscess on the R inguinal area x 2 days. Coronavirus ca1 screen: Client denies travel out of the [place] in the last 14 days. At this time, the client does not indicate any symptoms associated with coronavirus-19. Ebola Screen: Patient negative for fever greater than or equal to 101.5 degrees Fahrenheit, and additional compatible Ebola Virus Disease symptoms Patient denies exposure to infectious person. Patient denies travel to an Ebola-affected area in the 21 days before illness onset. No symptoms or risks identified at this time. Initial Sepsis Screen: Does the patient meet any 2 criteria? No. Patient's initial sepsis screen is negative. Does the patient have a suspected source of infection? No. Patient's initial sepsis screen is negative. Risk Assessment: Do you want to hurt yourself or someone else? Patient reports no desire to harm self or others. Onset of symptoms was July 28, 2020. 11:38 Method Of Arrival: Ambulatory ca1 11:38 Method Of Arrival: Ambulatory ca1 11:38 Acuity: MANFRED 4 ca1 Triage Assessment: 11:47 General: Appears in no apparent distress. comfortable, Behavior is calm, cooperative, ca1 appropriate for age. Pain: Complains of pain in groin Pain currently is 7 out of 10 on a pain scale. EENT: No signs and/or symptoms were reported regarding the EENT system. Neuro: Level of Consciousness is awake, alert, obeys commands, Oriented to person, place, time, situation. Derm: Skin is intact, is healthy with good turgor, Skin is pink, warm \T\ dry. Derm: Abscess located on groin is dime sized, has purulent drainage, is hot to touch, is red, is raised. Musculoskeletal: Circulation, motion, and sensation intact. Capillary refill < 3 seconds. Historical: - Allergies: 11:47 PENICILLINS; ca1 - Home Meds: 11:47 None [Active]; ca1 - PMHx: 11:47 None; ca1 - PSHx: 11:47 None; ca1 - Immunization history:: Adult Immunizations up to date, Flu vaccine is not up to date. Adult Immunizations. - Social history:: Smoking status: Patient reports the use of cigarette tobacco products, smokes one pack cigarettes per day. - Family history:: not pertinent. Screenin:48 Abuse screen: Denies threats or abuse. Denies injuries from another. Nutritional ca1 screening: No deficits noted. Tuberculosis screening: No symptoms or risk factors identified. Fall Risk None identified. Assessment: 11:48 Reassessment: see triage notes. ca1 12:39 Reassessment: Patient appears in no apparent distress at this time. Patient is alert, ca1 oriented x 3, equal unlabored respirations, skin warm/dry/pink. Vital Signs: 11:38 BP 126 / 82; Pulse 98; Resp 18 S; Temp 98.2(TE); Pulse Ox 96% on R/A; Weight 140.61 kg ca1 (R); Height 6 ft. 4 in. (193.04 cm) (R); Pain 7/10; 12:39 BP 126 / 75; Pulse 89; Resp 16 S; Pulse Ox 97% on R/A; ca1 11:38 Body Mass Index 37.73 (140.61 kg, 193.04 cm) ca1 ED Course: 11:30 Patient arrived in ED. ag5 11:30 Jaime Montes De Oca MD is Private Physician. ag5 11:39 Aries Mcgraw MD is Attending Physician. [email or web address] 11:45 Christina Chavira, RN is Primary Nurse. ca1 11:46 Triage completed. ca1 11:47 Arm band placed on right wrist. ca1 11:48 Patient has correct armband on for positive identification. Placed in gown. Bed in low ca1 position. Call light in reach. Side rails up X 1. Pulse ox on. NIBP on. Warm blanket given. 12:09 Jaime Montes De Oca MD is Referral Physician. [email or web address] 12:09 Davide Miranda MD is Referral Physician. [place] 12:40 Assist provider with I \T\ D: of an abscess on right inguinal area Set up I\T\D tray. ca 1 Performed by Aries Mcgraw MD Wound packed. iodoform gauze, Dressing with 4X4s, tape Patient tolerated well. Patient did not have IV access during this emergency room visit. Administered Medications: 12:19 Drug: LevOfloxacin 750 mg Route: PO; ca1 12:40 Follow up: Response: No adverse reaction ca1 12:19 Drug: Bactrim (160 mg-800 mg (DS) 1 tablet Route: PO; ca1 12:40 Follow up: Response: No adverse reaction ca1 12:30 Drug: Lidocaine-Epinephrine -1%: (1:100,000) 10 ml {Note: by Dr. Mcgraw.} Volume: 20 ca1 ml; Route: Infiltration; Outcome: 12:10 Discharge ordered by . [email or web address] 12:40 Discharged to home ambulatory. ca1 12:40 Condition: stable 12:40 Discharge instructions given to patient, Instructed on discharge instructions, follow up and referral plans. medication usage, wound care, Demonstrated understanding of instructions, follow-up care, medications, wound care, Prescriptions given X 2. 12:41 Patient left the ED. ca1 Signatures: Aries Mcgraw MD MD cha Acob, Cheryl, RN RN ca1 Vern Anderson ag5 Corrections: (The following items were deleted from the chart) 11:51 11:47 Derm: Abscess located on groin is dime sized, is hot to touch, is red, is raised, ca1 ca1 13:36 13:35 Response: No adverse reaction ca1 ca1 13:36 13:00 Response: No adverse reaction ca1 ca1
--- NOTE | 2020-07-28 12:11 | EDPHYS ---
Physician Documentation [facility] Name: Nuris Everett Age: 45 yrs Sex: Male : 1975 Arrival Date: 07/28/2020 Time: 11:30 Bed 17 Private MD: Jaime Montes De Oca R ED Physician Aries Mcgraw HPI: 07/28 12:03 This 45 yrs old Male presents to ER via Ambulatory with complaints of Abscess.[email or web address] 12:03 The patient presents with cellulitis of the right leg, the patient presents with a [place] swollen area of the right upper thigh. Description: The affected area is moderate sized, irregular, draining, erythematous. Onset: The symptoms/episode began/occurred 3 day(s) ago. Possible cause(s): unknown. Associated signs and symptoms: The patient has no apparent associated signs or symptoms. Modifying factors: the symptoms are alleviated by remaining still, the symptoms are aggravated by nothing. Severity of symptoms: At their worst the symptoms were moderate, in the emergency department the symptoms are unchanged. The patient has not experienced similar symptoms in the past. Historical: - Allergies: 11:47 PENICILLINS; ca1 - Home Meds: 11:47 None [Active]; ca1 - PMHx: 11:47 None; ca1 - PSHx: 11:47 None; ca1 - Immunization history:: Adult Immunizations up to date, Flu vaccine is not up to date. Adult Immunizations. - Social history:: Smoking status: Patient reports the use of cigarette tobacco products, smokes one pack cigarettes per day. - Family history:: not pertinent. ROS: 12:03 Constitutional: Negative for fever, chills, and weight loss, Eyes: Negative for injury, [place] pain, redness, and discharge, ENT: Negative for injury, pain, and discharge, Neck: Negative for injury, pain, and swelling, Cardiovascular: Negative for chest pain, palpitations, and edema, Respiratory: Negative for shortness of breath, cough, wheezing, and pleuritic chest pain, Abdomen/GI: Negative for abdominal pain, nausea, vomiting, diarrhea, and constipation, Back: Negative for injury and pain, : Negative for injury, bleeding, discharge, and swelling, Neuro: Negative for headache, weakness, numbness, tingling, and seizure, Psych: Negative for depression, anxiety, suicide ideation, homicidal ideation, and hallucinations, Allergy/Immunology: Negative for hives, rash, and allergies, Endocrine: Negative for neck swelling, polydipsia, polyuria, polyphagia, and marked weight changes, Hematologic/Lymphatic: Negative for swollen nodes, abnormal bleeding, and unusual bruising. 12:03 MS/extremity: Positive for erythema, pain, swelling. 12:03 Skin: Positive for abscess, erythema. Exam: 12:03 Constitutional: This is a well developed, well nourished patient who is awake, alert, [place] and in no acute distress. Head/Face: Normocephalic, atraumatic. Eyes: Pupils equal round and reactive to light, extra-ocular motions intact. Lids and lashes normal. Conjunctiva and sclera are non-icteric and not injected. Cornea within normal limits. Periorbital areas with no swelling, redness, or edema. ENT: Nares patent. No nasal discharge, no septal abnormalities noted. Tympanic membranes are normal and external auditory canals are clear. Oropharynx with no redness, swelling, or masses, exudates, or evidence of obstruction, uvula midline. Mucous membranes moist. Neck: Trachea midline, no thyromegaly or masses palpated, and no cervical lymphadenopathy. Supple, full range of motion without nuchal rigidity, or vertebral point tenderness. No Meningismus. Chest/axilla: Normal chest wall appearance and motion. Nontender with no deformity. No lesions are appreciated. Cardiovascular: Regular rate and rhythm with a normal S1 and S2. No gallops, murmurs, or rubs. Normal PMI, no JVD. No pulse deficits. Respiratory: Lungs have equal breath sounds bilaterally, clear to auscultation and percussion. No rales, rhonchi or wheezes noted. No increased work of breathing, no retractions or nasal flaring. Abdomen/GI: Soft, non-tender, with normal bowel sounds. No distension or tympany. No guarding or rebound. No evidence of tenderness throughout. Back: No spinal tenderness. No costovertebral tenderness. Full range of motion. Male : Normal genitalia with no discharge or lesions. MS/ Extremity: Pulses equal, no cyanosis. Neurovascular intact. Full, normal range of motion. Neuro: Awake and alert, GCS 15, oriented to person, place, time, and situation. Cranial nerves II-XII grossly intact. Motor strength 5/5 in all extremities. Sensory grossly intact. Cerebellar exam normal. Normal gait. Psych: Awake, alert, with orientation to person, place and time. Behavior, mood, and affect are within normal limits. 12:03 Skin: abscess, that is small, that is moderate sized, approximately 3 cm(s), with drainage, induration, that is mild is noted, lesion(s), are not present. Vital Signs: 11:38 BP 126 / 82; Pulse 98; Resp 18 S; Temp 98.2(TE); Pulse Ox 96% on R/A; Weight 140.61 kg ca1 (R); Height 6 ft. 4 in. (193.04 cm) (R); Pain 7/10; 12:39 BP 126 / 75; Pulse 89; Resp 16 S; Pulse Ox 97% on R/A; ca1 11:38 Body Mass Index 37.73 (140.61 kg, 193.04 cm) ca1 Procedures: 12:03 I \T\ D: Incision and drainage was performed for an abscess of the right perianal area. [email or web address] Prepped with Betadine, Anesthetized with 10 ml's 1% Lidocaine w/ Epi. Splinting: Splint applied to right upper thigh. MDM: 11:39 Patient medically screened. [facility] 12:03 Differential diagnosis: abscess, cellulitis. Data reviewed: vital signs, nurses notes, [facility] lab test result(s), blood glucose 91 mg/dl. Data interpreted: property assessment monitor: rate is 98 beats/min, rhythm is regular, Pulse oximetry: on room air is 96 %. Counseling: I had a detailed discussion with the patient and/or guardian regarding: the historical points, exam findings, and any diagnostic results supporting the discharge/admit diagnosis, lab results. 07/28 12:15 Order name: Glucose, Ancillary Testing EDNE 07/28 12:03 Order name: Blood Glucose Level; Complete Time: 12:14 [facility] 07/28 12:03 Order name: Dressing - Wound; Complete Time: 12:39 [place] 07/28 12:03 Order name: Gloves, Sterile; Complete Time: 12:14 [place] 07/28 12:03 Order name: Setup Suture Tray; Complete Time: 12:14 [facility] Administered Medications: 12:19 Drug: LevOfloxacin 750 mg Route: PO; ca1 12:40 Follow up: Response: No adverse reaction ca1 12:19 Drug: Bactrim (160 mg-800 mg (DS) 1 tablet Route: PO; ca1 12:40 Follow up: Response: No adverse reaction ca1 12:30 Drug: Lidocaine-Epinephrine -1%: (1:100,000) 10 ml {Note: by Dr. Mcgraw.} Volume: 20 ca1 ml; Route: Infiltration; Disposition: 07/28/20 12:10 Discharged to Home. Impression: Cutaneous abscess of groin - spontaneously draining. - Condition is Stable. - Discharge Instructions: Skin Abscess, Incision and Drainage, How to Take a Sitz Bath, Skin Abscess, [id number], Incision and Drainage, Care After. - Prescriptions for Levaquin 750 mg Oral Tablet - take 1 tablet by ORAL route once daily for 10 days; 10 tablet. Bactrim DS 800- 160 mg Oral Tablet - take 1 tablet by ORAL route every 12 hours for 10 days; 20 tablet. - Medication Reconciliation Form, Thank You Letter, Antibiotic Education, Prescription Opioid Use form. - Follow up: Jaime Montes De Oca MD; When: 2 - 3 days; Reason: Recheck today's complaints, Continuance of care, Re-evaluation by your physician. Follow up: Davide Miranda MD; When: 2 - 3 days; Reason: Recheck today's complaints, Re-evaluation by your physician. - Problem is new. - Symptoms have improved. Signatures: Aries Mcgraw MD MD cha Acob, Cheryl RN RN ca1 Corrections: (The following items were deleted from the chart) 12:41 12:10 07/28/2020 12:10 Discharged to Home. Impression: Cutaneous abscess of groin - ca1 spontaneously draining. Condition is Stable. Forms are Medication Reconciliation Form, Thank You Letter, Antibiotic Education, Prescription Opioid Use. Follow up: Jaime Montes De Oca; When: 2 - 3 days; Reason: Recheck today's complaints, Continuance of care, Re-evaluation by your physician. Follow up: Davide Miranda; When: 2 - 3 days; Reason: Recheck today's complaints, Re-evaluation by your physician. Problem is new. Symptoms have improved. [email or web address]
[2020-07-28] MEDS ORDERED: LIDOCAINE 1% W/EPI 1:100,000 MDV 20 ML VIAL ONE (12:13)
[2020-07-28] MEDS ORDERED: levoFLOXacin 750 MG TAB ONE (12:30)
[2020-07-28] MEDS ORDERED: SMZ./TMP. 800/160 MG TABLET ONE (12:30)
[2020-07-28 20:17] VITALS: TEMP 98.2
[2020-07-28 20:19] VITALS: BP 126/75; O2SAT 97
== END 2020-07-28 12:41 | disposition home or self-care (01) ==
LOC: ER 11:28
PROC: 0D9Q3ZZ Drainage of Anus, Percutaneous Approach (ICD-10-PCS; principal; 2020-07-28)
DX: L02.214 Cutaneous abscess of groin (principal); F17.210 Nicotine dependence, cigarettes, uncomplicated; Z88.0 Allergy status to penicillin
CPT/HCPCS: 82947; 99284